=== PATIENT | female | born 1995 | race Caucasian/White ===

== ENCOUNTER 2017-09-18 15:35 | Emergency (ER) | payer OTHER | END 2017-09-18 15:57 | disposition home or self-care (01) | LOC: E/R 15:35 | DX: H57.8 Other specified disorders of eye and adnexa (principal) | CPT/HCPCS: 99283; Z7502 ==

== ENCOUNTER 2018-06-04 14:21 | Emergency (ER) | payer OTHER | END 2018-06-04 16:20 | disposition home or self-care (01) | LOC: FTE 14:21 | DX: T25.211A Burn of second degree of right ankle, initial encounter (principal); X19.XXXA Contact with other heat and hot substances, initial encounter; Y92.9 Unspecified place or not applicable | CPT/HCPCS: 16020; 99283-25 ==

== ENCOUNTER 2018-08-09 20:44 | Emergency (ER) | payer OTHER ==
[2018-08-09] MEDS: HYDROCODONE/APAP (5/325) TAB PO (21:55)
== END 2018-08-09 22:44 | disposition home or self-care (01) ==
LOC: FTE 20:44
DX: S09.92XA Unspecified injury of nose, initial encounter (principal); M62.838 Other muscle spasm; R93.0 Abnormal findings on diagnostic imaging of skull and head, not elsewhere classified; Y04.8XXA Assault by other bodily force, initial encounter
CPT/HCPCS: 70450; 70486; 72040; 81025; 99284-25

== ENCOUNTER 2019-05-12 20:41 | Emergency (ER) | payer BC, OTHER | END 2019-05-12 23:07 | disposition home or self-care (01) | LOC: FTE 20:41 | DX: R19.7 Diarrhea, unspecified (principal) | CPT/HCPCS: 99282 ==